=== PATIENT | male | born 1965 | race Caucasian/White ===

== ENCOUNTER 2017-03-18 00:32 | Emergency (ER) | payer SELFPAY ==
[2017-03-18 00:35] VITALS: BP 138/87; PULSE 78; RESP 16; TEMP 98; O2SAT 97
[2017-03-18 01:42] VITALS: BP 122/75; PULSE 67; RESP 16; O2SAT 97
[2017-03-18 03:00] VITALS: BP 112/83; PULSE 64; RESP 16; O2SAT 96
--- NOTE | 2017-03-18 04:12 | PD ---
HPI Chief Complaint: Cardiac Complaint Time Seen by Provider: 02:12 Travel History International Travel<30 days: No Contact w/Intl Traveler<30days: No Traveled to known affect area: No History of Present Illness HPI The patient's 52 years old. He has had retrosternal chest pain for weeks now. He underwent a stress test at the chest pain center here just 4 months ago which was unremarkable. He smokes tobacco. He denies diabetes hypertension and hyperlipidemia. He denies family history coronary artery disease. There is no exertional or pleuritic component. 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 PFSH Past Medical History Medical History: Denies Significant Hx Heart Rhythm Problems: No Cardiac Catheterization: No Cardiovascular Problems: No High Cholesterol: No Congestive Heart Failure: No Diabetes: No Diminished Hearing: No Immunizations Current: Yes Past Surgical History Coronary Artery Bypass Graft: No Other Surgery: Yes (R finger surgery ) Social History Alcohol Use: Yes (OCCASIONALLY ) Tobacco Use: Yes (1 ppd ) Substance Use: No Allergies-Medications (Allergen,Severity, Reaction): Coded Allergies: No Known Allergies (Verified , 11/06/14) Reported Meds & Prescriptions Reported Meds & Active Scripts Active No Active Prescriptions or Reported Medications Review of Systems Except as stated in HPI: all other systems reviewed are Neg Physical Exam Narrative GENERAL: 52-year-old male soundly asleep in bed in no acute distress, pleasant upon arousal SKIN: Focused skin assessment warm/dry. HEAD: Atraumatic. Normocephalic. EYES: Pupils equal and round. No scleral icterus. No injection or drainage. ENT: No nasal bleeding or discharge. Mucous membranes pink and moist. NECK: Trachea midline. No JVD. CARDIOVASCULAR: Regular rate and rhythm. No murmur appreciated. RESPIRATORY: No accessory muscle use. Clear to auscultation. Breath sounds equal bilaterally. GASTROINTESTINAL: Abdomen soft, non-tender, nondistended. Hepatic and splenic margins not palpable. MUSCULOSKELETAL: No obvious deformities. No clubbing. No cyanosis. No edema. NEUROLOGICAL: Awake and alert. No obvious cranial nerve deficits. Motor grossly within normal limits. Normal speech. PSYCHIATRIC: Appropriate mood and affect; insight and judgment normal. Data Data Last Documented VS Vital Signs Date Time Temp Pulse Resp B/P Pulse Ox O2 Delivery O2 Flow Rate FiO2 03/18/17 03:00 64 16 112/83 96 Room Air 03/18/17 00:35 98.0 Vital signs reviewed Orders Electrocardiogram (03/18/17 ) MDM Medical Decision Making Medical Screen Exam Complete: Yes Emergency Medical Condition: Yes Medical Record Reviewed: Yes Differential Diagnosis NSTEMI, unstable angina, coronary vasospasm, PE, PTX, aortic dissection, pericarditis, myocarditis, endocarditis, PNA, esophageal disease, aneurysm, musculoskeletal etiologies, anxiety, cocaine/sympathomimetic abuse Narrative Course EKG reveals a sinus rhythm with a rate of 67 normal axis intervals no ischemic injury pattern Patient has been asleep since his arrival here. EKG is unremarkable. His chest pain center evaluation was normal. He is ready for discharge. Return precautions discussed Diagnosis Primary Impression: Chest pain of unknown etiology Referrals: Primary Care Physician 2 days Additional Instructions: You have a choice when it comes to health care, and we are glad that you chose [facility]. Hopefully, we have met your expectations on today's visit. You are welcome to return to [facility] at any time, as we are committed to meeting the health care needs of our community. Med/Other Pt SpecificInfo: No Change to Meds Scripts No Active Prescriptions or Reported Meds Disposition: DISCHARGE HOME Condition: Stable Jose Key MD Mar 18, 2017 04:11
[2017-03-18 04:48] VITALS: BP 113/74; PULSE 62; RESP 18; O2SAT 95
--- NOTE | 2017-03-18 14:57 | EKG ---
Date Performed: 03/18/2017 Time Performed: 03:47:41 PTAGE: 52 years EKG: Sinus rhythm POSSIBLE RIGHT VENTRICULAR CONDUCTION DELAY EARLY REPOLARIZATION BORDERLINE ECG Compared to prior tr acing no significant change PREVIOUS TRACING : 11/06/14 DOCTOR: Zulema Franklin Interpretating Date/Time 03/18/2017 14:54:18
== END 2017-03-18 04:51 | disposition home or self-care (01) ==
LOC: NEPE 00:32
DX: R07.9 Chest pain, unspecified (principal); F17.210 Nicotine dependence, cigarettes, uncomplicated
CPT/HCPCS: 93005